=== PATIENT | male | born 1985 | race Caucasian/White ===

== ENCOUNTER 2020-09-11 18:30 | Emergency (ER) | payer OTHER, MEDICAID, SELFPAY ==
[2020-09-11 18:37] VITALS: TEMP 36.1
[2020-09-11 18:39] VITALS: PULSE 97; RESP 16; O2SAT 100
[2020-09-11 19:05] LABS: COVID19 -Nasal RAPID Negative (Negative)
== END 2020-09-11 20:21 | disposition left against medical advice (07) ==
PROVIDERS: Emergency Provider Emergency Medicine
DX: R50.9 Fever, unspecified (principal); Z20.822 Contact with and (suspected) exposure to COVID-19
CPT/HCPCS: 87635; 99281; C9803

== ENCOUNTER 2021-03-19 20:28 | Emergency (ER) | payer OTHER, MEDICAID, SELFPAY ==
[2021-03-19 20:40] VITALS: BP 125/84; PULSE 77; RESP 14; TEMP 37.3; O2SAT 99
--- NOTE | 2021-03-20 06:39 | ED_ITS ---
HPI - Allergic Reaction General Chief complaint: Allergic Reaction Stated complaint: multiple bee stings, head and left arm Time Seen by Provider: 03/19/21 20:43 Source: patient Mode of arrival: Ambulatory Limitations: no limitations History of Present Illness HPI narrative: 35-year-old male daily smoker with noncontributory medical history presents with family in the chief complaint of a bee sting on left forearm and left head. He has pain and some burning but denies any significant swelling and certainly no allergic symptoms such as swelling of tongue, lip, throat or difficulty with breathing. He has never had any anaphylactic type reactions. He did not take any medications. He denies any history of being stung and was unsure what to do Related Data Allergies Allergy/AdvReac Type Severity Reaction Status Date / Time amoxicillin Allergy Verified 03/19/21 20:47 sulfamethoxazole Allergy Verified 03/19/21 20:47 [From Bactrim] trimethoprim [From Bactrim] Allergy Verified 03/19/21 20:47 Review of Systems Review of Systems Narrative: GENERAL: Denies chills, fatigue, malaise, fever, sweats. HEENT: Denies sinus pain, ear pain, sore throat, difficulty swallowing, dizziness. RESPIRATORY: Denies dyspnea, cough, wheezing, hemoptysis, sputum. CARDIOVASCULAR: Denies chest pain, palpitations, orthopnea, edema, GASTROINTESTINAL: Denies nausea, vomiting, abdominal pain, diarrhea, constipation, melena. : Denies dysuria, frequency, incontinence, hematuria, urinary retention. MUSCULOSKELETAL: denies weakness, joint pain, or bony pain SKIN: see HPI NEUROLOGIC: Denies weakness, headache, numbness, change in speech, confusion, s eizures, incoordination. PSYCHIATRIC: No concerning psychosocial issues. 12 point review of systems is negative except for those stated above Patient History Social History Smoking Status: Current every day smoker Smoking Status: Current every day smoker Exam Narrative Exam Narrative: GEN: AOx3 and in mild distress, anxious EYES: Pupils are equal, round, and reactive to light and accommodation. Extraoccular muscles are intact bilaterally. There is no subconjunctival hemorrhage or exudate. ENT: No swelling of tongue, lip or throat CHEST: Lungs are clear to auscultation bilaterally and free of wheezes, rales, or rhonchi. Heart rate is regular rhythm, there are no murmurs, clicks, rubs, or gallops. There is no chest wall tenderness. ABD: Abdomen is soft and nontender. There is no guarding or rebound. Bowel sounds are normal in all 4 quadrants. There is no mass or organomegaly. EXT: Full painless ROM of all extremities with no loss of sensation or strength. SKIN: Minimal swelling and erythema on the dorsum of left forearm, examined closely and no persistent stinger noted Initial Vital Signs Initial Vital Signs: Vital Signs Temperature 99.2 F 03/19/21 20:40 Pulse Rate 77 03/19/21 20:40 Respiratory Rate 14 03/19/21 20:40 Blood Pressure 125/84 03/19/21 20:40 Pulse Oximetry 99 03/19/21 20:40 MDM - Allergic Reaction MDM Narrative Medical decision making narrative: Otherwise healthy male with at least to insect stings in the absence of any systemic reaction Discharge Plan Departure Patient Disposition: Home Clinical Impression: Accidental bee sting Instructions: DI for Insect Bites and Stings Activity Restrictions/Additional Instructions: *You have been diagnosed with [bee stings without evidence of allergic reaction] *What to do: *Please consider the use of Tylenol and Motrin for pain and swelling as well as ice on the stings over the next 24 hours. *Please follow up with your primary care provider in 2-3 days, call for an appointment. Let them know you were seen in the Emergency Department and that we ask that you be seen in follow up. We will electronically transmit a record of today's note if your PCP is in our system *If you do not have a primary care provider please contact the [facility] Resource line at [phone]. They will ask some questions about your medical history and help get you set up with a doctor in the community. *Return to Emergency Department if you should have any new, worsening or concerning symptoms, such as [trouble breathing, trouble swallowing, swelling of tongue, lip or throat or other bothersome symptoms
== END 2021-03-19 21:05 | disposition home or self-care (01) ==
PROVIDERS: Emergency Provider Emergency Medicine
DX: T63.441A Toxic effect of venom of bees, accidental (unintentional), initial encounter (principal)
CPT/HCPCS: 99281

== ENCOUNTER 2022-05-19 14:09 | Emergency (ER) | payer OTHER, MEDICAID, SELFPAY ==
[2022-05-19 14:28] VITALS: BP 130/68; PULSE 85; RESP 17; TEMP 36.6; O2SAT 98; BMI 21.1
== END 2022-05-19 14:50 | disposition left against medical advice (07) ==
PROVIDERS: Emergency Provider Emergency Medicine
CPT/HCPCS: 99281

== ENCOUNTER 2023-05-08 17:25 | Emergency (ER) | payer OTHER, MEDICAID, SELFPAY ==
[2023-05-08 17:32] VITALS: BP 136/79; PULSE 77; RESP 18; TEMP 36.6; O2SAT 98; BMI 21.7
[2023-05-08 17:36] VITALS: PULSE 76
--- NOTE | 2023-05-08 17:37 | ED.SKABFB ---
HPI - Skin/Abscess/Foreign Bdy General Chief complaint: Skin/Abscess/Foreign Body Stated complaint: BEE STING Time Seen by Provider: 05/08/23 17:32 Source: patient Mode of arrival: Ambulatory Limitations: no limitations History of Present Illness HPI narrative: 38-year-old male smoker presents with a chief complaint of some pain and swelling in his right hand. He states that he was stung on the dorsum of his hand about 2 days ago and has had some swelling that is likely a bit better than initially. He denies any widespread symptoms such as facial swelling, tongue, lip or throat swelling, no trouble breathing and no rash. The swelling has not left his hand, there are no red streaks and he has no fever or chills. He denies any history of anaphylaxis, he is not taken Tylenol or Motrin or performed any element of treatment Related Data Home Medications Medication Instructions Recorded Confirmed No Known Home Medications 05/19/22 05/19/22 Allergies Allergy/AdvReac Type Severity Reaction Status Date / Time amoxicillin Allergy Verified 05/19/22 14:30 sulfamethoxazole Allergy Verified 05/19/22 14:30 [From Bactrim] trimethoprim [From Bactrim] Allergy Verified 05/19/22 14:30 Review of Systems Review of Systems Narrative: GENERAL: [38] year old patient appears stated age. Well-developed patient, in mild distress. HEAD: Atraumatic. Normocephalic. EYES: Pupils equal round and reactive. Extraocular motions intact. No scleral icterus. No injection or drainage. ENT: Nose without bleeding, purulent drainage. Throat without erythema, tonsillar hypertrophy or exudate. Airway patent. NECK: Trachea midline. Non tender CARDIOVASCULAR: Regular rate and rhythm without murmurs, gallops, or rubs. RESPIRATORY: Clear to auscultation. Breath sounds equal bilaterally. No wheezes, rales, or rhonchi. GASTROINTESTINAL: Abdomen soft, non-tender, nondistended. EXTREMITIES: mild R hand swelling, no fluctuance or induration, no lymphangitis BACK: Nontender without deformity or crepitance. No flank tenderness. NEURO: AOx3. SKIN: No rash or erythema of visible areas Patient History Social History Smoking Status: Current every day smoker Smoking Status: Current every day smoker alcohol intake frequency: holidays/special occasions only Substance Use Type: does not use Exam Initial Vital Signs Initial Vital Signs: Vital Signs Temperature 97.9 F 05/08/23 17:32 Pulse Rate 77 05/08/23 17:32 Respiratory Rate 18 05/08/23 17:32 Blood Pressure 136/79 05/08/23 17:32 Pulse Oximetry 98 05/08/23 17:32 Oxygen Delivery Method Room Air 05/08/23 17:32 Course Orders Ordered: Discontinued Medications Dexamethasone (Dexamethasone 10 Mg/Ml Vial) 10 mg PO NOW ONE Stop: 05/08/23 17:33 Vital Signs Vital signs: Vital Signs - 8 hr 05/08/23 17:32 Temperature 97.9 F Pulse Rate 77 Respiratory Rate 18 Blood Pressure 136/79 Pulse Oximetry 98 Oxygen Delivery Method Room Air MDM - Skin/Abscess/Foreign Bdy MDM Narrative Medical decision making narrative: [38] year old patient presents with bee sting Multiple etiologies for patient's symptoms considered including, but not limited to: [Localized reaction versus allergic reaction versus other] Prior Charts reviewed in our EMR Primary Historian: patient Patient's history and physical exam are reassuring, stung on his right hand a day or 2 ago with some residual swelling, no systemic complaints, no trouble breathing Patient's symptoms improved over duration of stay with above-stated therapies. Findings and discharge diagnosis discussed with patient/family followed by verbalization of understanding Return precautions discussed with patient/family whom verbalize understanding of diagnosis and plan Discharge Plan Departure Patient Disposition: Home Clinical Impression: Accidental bee sting Instructions: DI for Insect Bites and Stings Activity Restrictions/Additional Instructions: *You have been diagnosed with [bee sting to right hand. As we discussed your history and physical exam is reassuring and there is no evidence of allergic reaction or infection.] *What to do: *Please consider the routine use of Tylenol and Motrin to help with pain and inflammation. Elevate your right hand above the level of your heart as much as possible for the next few days. Routine use of ice will also likely help. *Please follow up with your primary care provider in 2-3 days, call for an appointment. Let them know you were seen in the Emergency Department and that we ask that you be seen in follow up. We will electronically transmit a record of today's note if your PCP is in our system *If you do not have a primary care provider please contact the [facility] Resource line at [phone]. They will ask some questions about your medical history and help get you set up with a doctor in the community. *Return to Emergency Department if you should have any new, worsening or concerning symptoms, such as [fever greater than 101 F, shaking chills, worsening pain, persistent vomiting or other bothersome symptoms] Prescriptions: No Action No Known Home Medications Stand Alone Forms: Patient Portal/API
[2023-05-08] MEDS: DEXAMETHASONE 10 MG/ML VIAL PO (17:43)
[2023-05-08 17:45] VITALS: BP 136/79; PULSE 76; RESP 18; O2SAT 98
== END 2023-05-08 17:55 | disposition home or self-care (01) ==
PROVIDERS: Emergency Provider Emergency Medicine
DX: T63.441A Toxic effect of venom of bees, accidental (unintentional), initial encounter (principal)
CPT/HCPCS: 99283; J1100

== ENCOUNTER 2025-05-17 06:26 | Emergency (ER) | payer OTHER, SELFPAY ==
[2025-05-17 06:31] VITALS: BP 143/87; PULSE 96; RESP 18; TEMP 37.2; O2SAT 96; BMI 22.4
--- NOTE | 2025-05-17 06:48 | ED_ITS ---
HPI - Dental/Oral General Chief complaint: Dental/Oral Stated complaint: tooth abscess 3 days Time Seen by Provider: 05/17/25 06:43 Source: patient Mode of arrival: Ambulatory History of Present Illness HPI Narrative: 40-year-old male with poor dentition, has right lower incisor broken tooth, residual socket, adjacent tooth now swollen, awaiting dental visit. Not currently on antibiotics. Has some swelling adjacent region. No problems swallowing or moving neck or opening jaw. Normal speech, able to handle secretions well. Related Data Previous Rx's ?Medication ?Instructions ?Recorded clindamycin HCl 300 mg capsule 300 mg PO Q6H Dental in fection 7 05/17/25 days #28 caps Allergies Allergy/AdvReac Type Severity Reaction Status Date / Time amoxicillin Allergy Verified 05/19/22 14:30 sulfamethoxazole (From Allergy Verified 05/19/22 14:30 Bactrim) trimethoprim (From Bactrim) Allergy Verified 05/19/22 14:30 Patient History Social History Smoking Status: Current every day smoker Smoking Status: Current every day smoker tobacco type: cigarettes alcohol intake frequency: holidays/special occasions only Exam Narrative Exam Narrative: GENERAL: Well-developed patient, in mild distress. HEAD: Atraumatic. Normocephalic. EYES: Pupils equal round and reactive. Extraocular motions intact. No scleral icterus. No injection or drainage. ENT: Poor dentition throughout, missing right lower lateral incisor, adjacent canine with erythema at base, some adjacent swelling to buccal cheek area, without gross swelling to submandibular space. Moves neck well. Normal phonation, seems to be able to handle secretions well. NECK: Trachea midline. Non tender CARDIOVASCULAR: Regular rate and rhythm without murmurs, gallops, or rubs. RESPIRATORY: Clear to auscultation. Breath sounds equal bilaterally. No wheezes, rales, or rhonchi. GASTROINTESTINAL: Abdomen soft, non-tender, nondistended. EXTREMITIES: No edema or joint tenderness. BACK: Nontender without deformity or crepitance. No flank tenderness. NEURO: AOx3. Motor functions grossly nonfocal. SKIN: No rash or erythema of visible areas Initial Vital Signs Initial Vital Signs: Vital Signs Temperature 98.9 F 05/17/25 06:31 Pulse Rate 96 H 05/17/25 06:31 Respiratory Rate 18 05/17/25 06:31 Blood Pressure 143/87 H 05/17/25 06:31 Pulse Oximetry 96 05/17/25 06:31 Oxygen Delivery Method Room Air 05/17/25 06:31 Course Orders Ordered: Discontinued Medications Clindamycin HCl (Clindamycin 150 Mg Capsule) 300 mg PO NOW ONE Stop: 05/17/25 06:49 Last Admin: 05/17/25 07:04 Dose: 300 mg Documented By: Tramadol HCl (Tramadol 50 Mg Prepack) 1 bottle MISC DIRECTED ONE Stop: 05/17/25 06:49 Last Admin: 05/17/25 07:04 Dose: 1 bottle Documented By: Vital Signs Vital signs: Vital Signs - 8 hr 05/17/25 06:31 Temperature 98.9 F Pulse Rate 96 H Respiratory Rate 18 Blood Pressure 143/87 H Pulse Oximetry 96 Oxygen Delivery Method Room Air MDM - Dental/Oral MDM Narrative Medical decision making narrative: 40-year-old male with poor dentition, missing broken tooth right lower lateral incisor, with the adjacent inflammation gingival and buccal including the base of the right inferior incisor. Likely dental caries. Advanced CT imaging not indicated at this time. Trial of antibiotics and dental follow up. History of penicillin allergy. Has had clindamycin before. Oral clindamycin dose given, prescription for further clindamycin sent to his requested pharmacy. Recheck with dentist advised next couple of days. Advised use of [id number] Tyle nol and or Motrin as needed for pain control. Return precautions discussed. Home pack tramadol to use if needed for pain control. Discharge Plan Departure Patient Disposition: Home Clinical Impression: Dental caries Instructions: DI for Dental Pain Activity Restrictions/Additional Instructions: Right sided tooth area pain and swelling, missing right lower lateral incisor tooth, with the adjacent inflammation to the buccal mucosa and the right lower canine tooth. Suspected dental abscess by history, trial of antibiotics. History of penicillin allergy. Clindamycin antibiotic oral dose given, prescription sent to your pharmacy for more clindamycin antibiotics to take. Follow up with dentist advised, possible extraction versus other definitive treatments. Advised to call the office of your dentist to make follow up arrangements in the next couple of days. Return earlier to this/nearest emergency department for any change worsening symptoms or any concerns prior. Prescriptions: New clindamycin HCl 300 mg capsule 300 mg PO Q6H 7 Days Qty: 28 0RF Stand Alone Forms: Patient Portal/API
[2025-05-17] MEDS: CLINDAMYCIN 150 MG CAPSULE 300 MG PO (07:04)
== END 2025-05-17 07:07 | disposition home or self-care (01) ==
PROVIDERS: Emergency Provider Emergency Medicine
DX: K02.9 Dental caries, unspecified (principal)
CPT/HCPCS: 99283

== ENCOUNTER 2025-08-17 12:24 | Emergency (ER) | payer OTHER, SELFPAY ==
[2025-08-17 12:28] VITALS: BP 142/84; PULSE 108; RESP 18; TEMP 36.8; O2SAT 99; BMI 22.4
--- NOTE | 2025-08-17 13:01 | ED.URI ---
HPI - URI/Sore Throat <Patricia Cordoba PA-C - Last Filed: 08/17/25 19:15> General Chief Complaint: Upper Respiratory Symptoms Stated Complaint: sore throat, 7 days on and off Time Seen by Provider: 08/17/25 12:49 Source: patient Mode of arrival: Ambulatory History of Present Illness HPI Narrative: Mr. Pulliam is a pleasant 40-year-old male with no reported significant medical history, does use daily tobacco occasional meth who presents to the emergency department for intermittent sore throat x1 week. Patient states he has been having pain with swallowing and generalized body aches that initially got better but then started getting worse 4 days ago. He is also having a runny nose, sinus congestion and a cough. He is hoping for antibiotics, he is allergic to penicillins and sulfa drugs. He is able to swallow but it is very painful and he prefers to spit. He is tolerating fluids and solids. States it is difficult to breathe through his nose. Denies vomiting, diarrhea, dysuria, chest pain, fevers. Related Data Previous Rx's ?Medication ?Instructions ?Recorded clindamycin HCl 300 mg capsule 300 mg PO TID 10 days #30 caps 08/17/25 Allergies Allergy/AdvReac Type Severity Reaction Status Date / Time amoxicillin Allergy Verified 08/17/25 12:38 sulfamethoxazole (From Allergy Verified 08/17/25 12:38 Bactrim) trimethoprim (From Bactrim) Allergy Verified 08/17/25 12:38 Review of Systems <Patricia Cordoba PA-C - Last Filed: 08/17/25 19:15> Review of Systems ROS Unobtainable: All systems reviewed & are unremarkable except as noted in HPI and below Patient History <Patricia Cordoba PA-C - Last Filed: 08/17/25 19:15> tobacco type: cigarettes alcohol intake frequency: holidays/special occasions only Exam <Patricia Cordoba PA-C - Last Filed: 08/17/25 19:15> Narrative Exam Narrative: GENERAL: 40 year old patient appears stated age. Well-developed patient, in no acute distress. HEAD: Atraumatic. Normocephalic. EYES: PERRL. Extraocular motions intact. No scleral icterus. No injection or drainage. ENT: Clear ear canals and pearly [place] TMs bilaterally. Nose without bleeding, there is clear nasal drainage. Posterior oropharynx is brightly erythematous. Uvula is midline. There is 2+ bilateral tonsillar hypertrophy and tonsillar exudates. Airway patent. No submandibular edema or tenderness. Clear speech. NECK: Trachea midline. Cervical ROM intact. Bilateral palpable cervical lymphadenopathy. CARDIOVASCULAR: Increased rate and regular rhythm. RESPIRATORY: ?Nonlabored respirations. ?Speaking in clear, full sentences. ?Clear to auscultation. Breath sounds equal bilaterally. No wheezes, rales, or rhonchi. ? GASTROINTESTINAL: Abdomen soft, non-tender, nondistended. NEURO: AOx3. ?Clear speech. ?Moves all 4 extremities appropriately. SKIN: No rash or erythema of visible areas Initial Vital Signs Initial Vital Signs: Vital Signs Temperature 98.3 F 08/17/25 12:28 Pulse Rate 108 H 08/17/25 12:28 Respiratory Rate 18 08/17/25 12:28 Blood Pressure 142/84 H 08/17/25 12:28 Pulse Oximetry 99 08/17/25 12:28 Oxygen Delivery Method Room Air 08/17/25 12:28 <Roberta Cardoza DO - Last Filed: 08/20/25 07:21> Initial Vital Signs Initial Vital Signs: Vital Signs Temperature 98.3 F 08/17/25 12:28 Pulse Rate 108 H 08/17/25 12:28 Respiratory Rate 18 08/17/25 12:28 Blood Pressure 142/84 H 08/17/25 12:28 Pulse Oximetry 99 08/17/25 12:28 Oxygen Delivery Method Room Air 08/17/25 12:28 Course <Patricia Cordoba PA-C - Last Filed: 08/17/25 19:15> Orders Ordered: Discontinued Medications Clindamycin HCl (Clindamycin 150 Mg Capsule) 300 mg PO NOW ONE Stop: 08/17/25 14:00 Last Admin: 08/17/25 14:08 Dose: 300 mg Documented By: KIMBERLI Dexamethasone (Dexamethasone 10 Mg/Ml Vial) 10 mg PO NOW ONE Stop: 08/17/25 14:00 Last Admin: 08/17/25 14:09 Dose: 10 mg Documented By: AI Ketorolac Tromethamine (Ketorolac 30 Mg/Ml Vial) 30 mg IM NOW ONE Stop: 08/17/25 14:00 Last Admin: 08/17/25 14:09 Dose: 30 mg Documented By: KIMBERLI Vital Signs Vital signs: Vital Signs - 8 hr 08/17/25 12:28 08/17/25 14:19 Temperature 98.3 F 97.8 F Pulse Rate 108 H 98 H Respiratory Rate 18 16 Blood Pressure 142/84 H 119/75 Pulse Oximetry 99 100 Oxygen Delivery Method Room Air Room Air <Roberta Cardoza DO - Last Filed: 08/20/25 07:21> Orders Ordered: Discontinued Medications Clindamycin HCl (Clindamycin 150 Mg Capsule) 300 mg PO NOW ONE Stop: 08/17/25 14:00 Last Admin: 08/17/25 14:08 Dose: 300 mg Documented By: KIMBERLI Dexamethasone (Dexamethasone 10 Mg/Ml Vial) 10 mg PO NOW ONE Stop: 08/17/25 14:00 Last Admin: 08/17/25 14:09 Dose: 10 mg Documented By: KIMBERLI Ketorolac Tromethamine (Ketorolac 30 Mg/Ml Vial) 30 mg IM NOW ONE Stop: 08/17/25 14:00 Last Admin: 08/17/25 14:09 Dose: 30 mg Documented By: KIMBERLI Vital Signs Vital signs: Vital Signs - 8 hr 08/17/25 12:28 08/17/25 14:19 Temperature 98.3 F 97.8 F Pulse Rate 108 H 98 H Respiratory Rate 18 16 Blood Pressure 142/84 H 119/75 Pulse Oximetry 99 100 Oxygen Delivery Method Room Air Room Air MDM - URI/Sore Throat <Patricia Cordoba PA-C - Last Filed: 08/17/25 19:15> Medical Records Attestation: I reviewed the patient's medical records. Lab Data Labs: Lab Results 08/17/25 08/17/25 Range/Units 12:52 14:20 Monoscreen Negative (Negative) Group A Strep (PCR) Negative (Negative) MDM Narrative Medical decision making narrative: 40-year-old male with no reported significant medical history, does use daily tobacco occasional meth who presents to the emergency department for intermittent sore throat x1 week. Differential diagnosis includes but is not limited to strep pharyngitis, viral pharyngitis, mononucleosis, peritonsillar abscess, viral syndrome, pneumonia, sinusitis, etc. On exam the patient is in no acute distress, nontoxic appearing, vital signs appropriate except for mildly elevated heart rate. Upon meeting the patient he is requesting discharge. Physical exam reveals a brightly erythematous posterior oropharynx with bilateral tonsillar hypertrophy and exudates. Patient is tolerating p.o. however he is preferring to spit out his saliva due to pain with swallowing. Oropharynx is patent and there is no uvular deviation. Submandibular region is soft and patient is able to entirely open his mouth. He has bilateral tender lymphadenopathy in the cervical region. Lungs are clear to auscultation bilaterally and abdomen is soft and nontender. He declines ibuprofen and Tylenol as he states they do not work. He we will treat pain with Toradol, swelling with Decadron, presumed bacterial pharyngitis with clindamycin however I do also have suspicion for mononucleosis. We will obtain mono test however patient is unwilling to wait for the results. Monoscreen negative. We will prescribe clindamycin 300 mg t.i.d. times 10 days. Discussed the importance of completion of full course of antibiotics. Discussed strict ER return precautions. Patient verbalized understanding of all information agreeable with the plan. He is stable for discharge home. <Roberta Cardoza, - Last Filed: 08/20/25 07:21> Lab Data Labs: Lab Results 08/17/25 08/17/25 Range/Units 12:52 14:20 Monoscreen Negative (Negative) Group A Strep (PCR) Negative (Negative) Discharge Plan Departure Patient Disposition: Home Clinical Impression: Pharyngitis Qualifiers: Pharyngitis/tonsillitis etiology: unspecified etiology Qualified Code(s): J02.9 - Acute pharyngitis, unspecified Instructions: DI for Pharyngitis/Tonsillopharyngitis -- Adult Activity Restrictions/Additional Instructions: Dear Marlen Heraclio, Thank you for coming to the emergency department. Today you were evaluated for sore throat, swollen tonsils, cough body aches. Your strep throat test was negative however we did send a throat culture and a mono test to the lab. At this time I am treating with antibiotics for infection of your tonsils. It is very important you complete the full 10 day course to treat this infection urine if your symptoms improve. Ibuprofen and acetaminophen we will help with your pain. Drinking warm fluids with honey we will also help with your throat. It is very important that you return to the emergency department immediately if you develop new or worsening symptoms, difficulty breathing, inability to swallow or any other concerns. Please follow up with your primary care doctor within the next 2-3 days for ER follow-up. (If you do not have a PCP you can call [phone]. ?to schedule an appointment with an [facility] Primary Care Provider) IF YOU DEVELOP ANY NEW OR WORSENING SYMPTOMS, RETURN TO THE ER! Please read the attached instructions, they highlight more specific treatments and interventions for you at home. Thank you for letting me participate in your care, Patricia Cordoba PA-C Prescriptions: New clindamycin HCl 300 mg capsule 300 mg PO TID 10 Days Qty: 30 0RF Stand Alone Forms: Patient Portal/API ED Sign-out <Roberta Cardoza DO - Last Filed: 08/20/25 07:21> Cosign ED Attending Miguel Attestation: I was immediately available in the department for consultation.
[2025-08-17 13:35] LABS: Strep Grp A by PCR Rapid Negative (Negative)
[2025-08-17] MEDS: CLINDAMYCIN 150 MG CAPSULE 300 MG PO (14:08)
[2025-08-17] MEDS: KETOROLAC 30 MG/ML VIAL IM (14:09)
--- NOTE | 2025-08-17 14:18 | PC.NURSE ---
ketarolac IM to left deltoid
[2025-08-17 14:19] VITALS: BP 119/75; PULSE 98; RESP 16; TEMP 36.6; O2SAT 100
== END 2025-08-17 14:20 | disposition home or self-care (01) ==
PROVIDERS: Emergency Medicine; Emergency Provider Physician Assistant
DX: J02.9 Acute pharyngitis, unspecified (principal); R09.89 Other specified symptoms and signs involving the circulatory and respiratory systems; R05.9 Cough, unspecified; M79.10 Myalgia, unspecified site
CPT/HCPCS: 36415; 86318; 87070; 87651; 96372; 99283; J1100; J1885